=== PATIENT | male | born 1950 | race Caucasian/White ===

== ENCOUNTER 2021-06-25 20:35 | Inpatient (IN) | payer MEDICARE ==
[2021-06-25] MEDS ORDERED: Acetaminophen 325 MG TAB PO PRN (22:08)
[2021-06-25] MEDS ORDERED: Apixaban 2.5 MG TAB PO SCH (22:45)
[2021-06-26] MEDS: predniSONE 20 MG TAB PO SCH (08:26)
[2021-06-26] MEDS: Zinc Sulfate 220 MG CAP PO SCH (08:27)
[2021-06-26] MEDS: Apixaban 2.5 MG TAB PO SCH ×2 (08:27→20:53)
[2021-06-26] MEDS: Cholecalciferol (Vitamin D3) 400 UNITS TAB PO SCH (08:27)
[2021-06-26] MEDS: Ascorbic Acid 500 mg Chewable Tablet PO SCH (08:27)
[2021-06-26] MEDS: Lantus 1000 UNITS/10 ML VIAL SC SCH (08:31)
[2021-06-26] MEDS ORDERED: Aspirin Chewable 81 MG TAB PO SCH (09:00)
[2021-06-26] MEDS ORDERED: Bisacodyl 5 MG TAB PO SCH (17:45)
[2021-06-27] MEDS: Polyethylene Glycol 3350 17 GM Packet PER TUBE SCH (08:38)
[2021-06-27] MEDS: Apixaban 2.5 MG TAB PO SCH ×2 (08:38→21:06)
[2021-06-27] MEDS: predniSONE 20 MG TAB PO SCH (08:38)
[2021-06-27] MEDS: Cholecalciferol (Vitamin D3) 400 UNITS TAB PO SCH (08:38)
[2021-06-27] MEDS: Zinc Sulfate 220 MG CAP PO SCH (08:38)
[2021-06-27] MEDS: Lantus 1000 UNITS/10 ML VIAL SC SCH (08:38)
[2021-06-27] MEDS: Ascorbic Acid 500 mg Chewable Tablet PO SCH (08:38)
[2021-06-27] MEDS ORDERED: FLU VACC QS2021-22(65YR UP)/PF 240 MCG/0.7 ML SYRINGE IM ONE (09:00)
[2021-06-27] MEDS: Saccharomyces boulardii 250 MG CAP PO SCH (10:34)
[2021-06-28] MEDS: predniSONE 20 MG TAB PO SCH (08:41)
[2021-06-28] MEDS: Apixaban 2.5 MG TAB PO SCH ×2 (08:41→20:16)
[2021-06-28] MEDS: Cholecalciferol (Vitamin D3) 400 UNITS TAB PO SCH (08:42)
[2021-06-28] MEDS: Ascorbic Acid 500 mg Chewable Tablet PO SCH (08:42)
[2021-06-28] MEDS: Lantus 1000 UNITS/10 ML VIAL SC SCH (08:42)
[2021-06-28] MEDS: Polyethylene Glycol 3350 17 GM Packet PER TUBE SCH (08:43)
[2021-06-28] MEDS: Saccharomyces boulardii 250 MG CAP PO SCH (08:44)
[2021-06-28] MEDS: Zinc Sulfate 220 MG CAP PO SCH (08:44)
[2021-06-28] MEDS ORDERED: Dextrose 50% Abboject 50 ML SYRINGE IVP PRN (17:00)
[2021-06-28] MEDS ORDERED: Dextrose 5% in Water 1,000 ML IV PRN (17:00)
[2021-06-28] MEDS: HumaLOG 300 UNITS/3 ML VIAL SC PRN (17:14)
[2021-06-28] MEDS ORDERED: HumaLOG 300 UNITS/3 ML VIAL SC PRN (17:45)
[2021-06-28] MEDS ORDERED: Fleet Enema 133 ML BOT PR PRN (17:59)
[2021-06-28] MEDS ORDERED: Melatonin 3 MG TAB PO PRN (20:59)
[2021-06-29 05:34] LABS: Hemoglobin 14.6 g/dL (14.0-18.0); Platelet Count 171 thou/uL (130-400)
[2021-06-29] MEDS: predniSONE 10 MG TAB PO SCH (08:44)
[2021-06-29] MEDS: Apixaban 2.5 MG TAB PO SCH ×2 (08:45→20:15)
[2021-06-29] MEDS: Zinc Sulfate 220 MG CAP PO SCH (08:45)
[2021-06-29] MEDS: Ascorbic Acid 500 mg Chewable Tablet PO SCH (08:45)
[2021-06-29] MEDS: Lantus 1000 UNITS/10 ML VIAL SC SCH (08:45)
[2021-06-29] MEDS: Polyethylene Glycol 3350 17 GM Packet PER TUBE SCH (08:53)
[2021-06-29] MEDS: Saccharomyces boulardii 250 MG CAP PO SCH (08:53)
[2021-06-29] MEDS: Cholecalciferol (Vitamin D3) 400 UNITS TAB PO SCH (08:54)
[2021-06-29] MEDS: HumaLOG 300 UNITS/3 ML VIAL SC PRN ×2 (17:11→21:22)
[2021-06-30] MEDS: Saccharomyces boulardii 250 MG CAP PO SCH (08:44)
[2021-06-30] MEDS: Cholecalciferol (Vitamin D3) 400 UNITS TAB PO SCH (08:44)
[2021-06-30] MEDS: Apixaban 2.5 MG TAB PO SCH ×2 (08:44→21:44)
[2021-06-30] MEDS: Ascorbic Acid 500 mg Chewable Tablet PO SCH (08:44)
[2021-06-30] MEDS: predniSONE 10 MG TAB PO SCH (08:44)
[2021-06-30] MEDS: Zinc Sulfate 220 MG CAP PO SCH (08:44)
[2021-06-30] MEDS: Polyethylene Glycol 3350 17 GM Packet PER TUBE SCH (08:52)
[2021-06-30] MEDS: Lantus 1000 UNITS/10 ML VIAL SC SCH (09:20)
[2021-06-30] MEDS: HumaLOG 300 UNITS/3 ML VIAL SC PRN (17:18)
[2021-07-01] MEDS: predniSONE 10 MG TAB PO SCH (08:15)
[2021-07-01] MEDS: Cholecalciferol (Vitamin D3) 400 UNITS TAB PO SCH (08:16)
[2021-07-01] MEDS: Apixaban 2.5 MG TAB PO SCH ×2 (08:16→20:26)
[2021-07-01] MEDS: Ascorbic Acid 500 mg Chewable Tablet PO SCH (08:16)
[2021-07-01] MEDS: Lantus 1000 UNITS/10 ML VIAL SC SCH (08:16)
[2021-07-01] MEDS: Polyethylene Glycol 3350 17 GM Packet PER TUBE SCH (08:17)
[2021-07-01] MEDS: Zinc Sulfate 220 MG CAP PO SCH (08:17)
[2021-07-01] MEDS: Saccharomyces boulardii 250 MG CAP PO SCH (08:17)
[2021-07-01] MEDS: HumaLOG 300 UNITS/3 ML VIAL SC PRN (16:23)
[2021-07-02] MEDS: Ascorbic Acid 500 mg Chewable Tablet PO SCH (08:29)
[2021-07-02] MEDS: Apixaban 2.5 MG TAB PO SCH ×2 (08:29→20:38)
[2021-07-02] MEDS: Cholecalciferol (Vitamin D3) 400 UNITS TAB PO SCH (08:29)
[2021-07-02] MEDS: Saccharomyces boulardii 250 MG CAP PO SCH (08:30)
[2021-07-02] MEDS: predniSONE 20 MG TAB PO SCH (08:30)
[2021-07-02] MEDS: Polyethylene Glycol 3350 17 GM Packet PER TUBE SCH (08:30)
[2021-07-02] MEDS: Lantus 1000 UNITS/10 ML VIAL SC SCH (08:31)
[2021-07-02] MEDS: Zinc Sulfate 220 MG CAP PO SCH (08:39)
[2021-07-02] MEDS: HumaLOG 300 UNITS/3 ML VIAL SC PRN ×2 (12:02→16:57)
[2021-07-03] MEDS: Apixaban 2.5 MG TAB PO SCH ×2 (09:45→22:05)
[2021-07-03] MEDS: predniSONE 20 MG TAB PO SCH (09:45)
[2021-07-03] MEDS: Cholecalciferol (Vitamin D3) 400 UNITS TAB PO SCH (09:46)
[2021-07-03] MEDS: Lantus 1000 UNITS/10 ML VIAL SC SCH (09:46)
[2021-07-03] MEDS: Polyethylene Glycol 3350 17 GM Packet PO SCH (09:46)
[2021-07-03] MEDS: Ascorbic Acid 500 mg Chewable Tablet PO SCH (09:46)
[2021-07-03] MEDS: Zinc Sulfate 220 MG CAP PO SCH (09:47)
[2021-07-03] MEDS: Saccharomyces boulardii 250 MG CAP PO SCH (09:47)
[2021-07-03] MEDS: HumaLOG 300 UNITS/3 ML VIAL SC PRN ×2 (12:16→16:53)
[2021-07-04] MEDS: Lantus 1000 UNITS/10 ML VIAL SC SCH (08:41)
[2021-07-04] MEDS: Polyethylene Glycol 3350 17 GM Packet PO SCH (08:42)
[2021-07-04] MEDS: Ascorbic Acid 500 mg Chewable Tablet PO SCH (08:42)
[2021-07-04] MEDS: Apixaban 2.5 MG TAB PO SCH ×2 (08:42→21:03)
[2021-07-04] MEDS: predniSONE 20 MG TAB PO SCH (08:42)
[2021-07-04] MEDS: Cholecalciferol (Vitamin D3) 400 UNITS TAB PO SCH (08:42)
[2021-07-04] MEDS: Saccharomyces boulardii 250 MG CAP PO SCH (08:42)
[2021-07-04] MEDS: Zinc Sulfate 220 MG CAP PO SCH (08:43)
[2021-07-04] MEDS: HumaLOG 300 UNITS/3 ML VIAL SC PRN ×2 (12:17→17:02)
[2021-07-05 05:23] LABS: Hemoglobin 14.1 g/dL (14.0-18.0); Platelet Count 134 thou/uL (130-400)
[2021-07-05] MEDS: predniSONE 10 MG TAB PO SCH (07:54)
[2021-07-05] MEDS: Cholecalciferol (Vitamin D3) 400 UNITS TAB PO SCH (07:59)
[2021-07-05] MEDS: Apixaban 2.5 MG TAB PO SCH ×2 (07:59→20:16)
[2021-07-05] MEDS: Zinc Sulfate 220 MG CAP PO SCH (07:59)
[2021-07-05] MEDS: Saccharomyces boulardii 250 MG CAP PO SCH (07:59)
[2021-07-05] MEDS: Ascorbic Acid 500 mg Chewable Tablet PO SCH (07:59)
[2021-07-05] MEDS: Lantus 1000 UNITS/10 ML VIAL SC SCH (08:00)
[2021-07-05] MEDS: Polyethylene Glycol 3350 17 GM Packet PO SCH (08:06)
[2021-07-05 10:53] VITALS: BMI 23.6
[2021-07-05] MEDS: HumaLOG 300 UNITS/3 ML VIAL SC PRN (12:22)
[2021-07-06] MEDS: Apixaban 2.5 MG TAB PO SCH ×2 (08:59→20:47)
[2021-07-06] MEDS: Cholecalciferol (Vitamin D3) 400 UNITS TAB PO SCH (08:59)
[2021-07-06] MEDS: Ascorbic Acid 500 mg Chewable Tablet PO SCH (08:59)
[2021-07-06] MEDS: Saccharomyces boulardii 250 MG CAP PO SCH (08:59)
[2021-07-06] MEDS: Polyethylene Glycol 3350 17 GM Packet PO SCH (08:59)
[2021-07-06] MEDS: Lantus 1000 UNITS/10 ML VIAL SC SCH (08:59)
[2021-07-06] MEDS: predniSONE 10 MG TAB PO SCH (08:59)
[2021-07-06] MEDS: Zinc Sulfate 220 MG CAP PO SCH (09:04)
[2021-07-06] MEDS: HumaLOG 300 UNITS/3 ML VIAL SC PRN (12:35)
[2021-07-07] MEDS ORDERED: Aspirin 81 mg Enteric Coated Tablet PO SCH (09:00)
[2021-07-07] MEDS: Cholecalciferol (Vitamin D3) 400 UNITS TAB PO SCH (09:12)
[2021-07-07] MEDS: Zinc Sulfate 220 MG CAP PO SCH (09:12)
[2021-07-07] MEDS: Saccharomyces boulardii 250 MG CAP PO SCH (09:12)
[2021-07-07] MEDS: Ascorbic Acid 500 mg Chewable Tablet PO SCH (09:12)
[2021-07-07] MEDS: predniSONE 10 MG TAB PO SCH (09:13)
[2021-07-07] MEDS: Lantus 1000 UNITS/10 ML VIAL SC SCH (09:14)
[2021-07-07] MEDS: Polyethylene Glycol 3350 17 GM Packet PO SCH (09:14)
[2021-07-07 12:41] VITALS: BP 105/69; TEMP 98.3
== END 2021-07-07 14:00 | disposition home or self-care (01) | DRG 947 ==
LOC: MADMS 20:35
PROVIDERS: ADMIT Family Medicine; ATTEND Family Medicine
DX: R53.81 Other malaise (principal); U07.1 COVID-19; J12.82 Pneumonia due to coronavirus disease 2019; J80 Acute respiratory distress syndrome; E11.65 Type 2 diabetes mellitus with hyperglycemia; Z66 Do not resuscitate; R63.4 Abnormal weight loss; K59.00 Constipation, unspecified; R26.9 Unspecified abnormalities of gait and mobility; Z91.014 Allergy to mammalian meats; Z79.82 Long term (current) use of aspirin; Z79.4 Long term (current) use of insulin; Z79.899 Other long term (current) drug therapy; Z90.49 Acquired absence of other specified parts of digestive tract; Z68.23 Body mass index [BMI] 23.0-23.9, adult; Z99.81 Dependence on supplemental oxygen; Z91.013 Allergy to seafood
CPT/HCPCS: 36415; 36416; 71046; 82565; 85014; 85018; 85049; J1815; J7512

== ENCOUNTER 2021-07-14 19:32 | Emergency (ER) | payer MEDICARE ==
[~2021-07-14 19:32] MED LIST: Iopamidol 370 76% 125 ML VIAL FS ONE
[2021-07-14 21:05] LABS: #Basophils 0.1 thou/uL (0.0-0.2); #Eosinphils 0.2 thou/uL (0.0-0.7); #Lymphocytes 0.8 thou/uL (1.20-3.40); #Monocytes 0.6 thou/uL (0.11-0.59); #Neutrophils 4.6 thou/uL (1.40-6.50); %Basophils 2.3 % (0.0-1.0); %Eosinophils 3.7 % (0.0-10.0); %Lymphocytes 12.8 % (21.0-51.0); %Monocytes 9.8 % (0.0-10.0); %Neutrophils 71.4 % (42.0-75.0); Mean Corpuscular HGB CONC 32.3 g/dL (32.0-36.0); Mean Corpuscular Volume 89.7 fL (78.0-98.0); Mean Platelet Volume 5.5 fL (7.4-10.4); Platelet Count 181 thou/uL (130-400); RBC Distribution Width 12.6 % (11.5-14.5); Red Blood Cell (RBC) Count 4.49 mill/uL (4.70-6.10); White Blood Cell (WBC) Count 6.4 thou/uL (4.8-10.8)
[2021-07-14] MEDS ORDERED: Albuterol Sulfate 2.5 mg/3 ml Neb ONE (21:16)
[2021-07-14 21:27] LABS: ALT (SGPT) 10 U/L (8-55); AST (SGOT) 12 U/L (5-34); Albumin 3.2 g/dL (3.4-4.8); Alkaline Phosphatase 77 U/L (40-110); Anion Gap 14 mmol/L (10-20); BUN (Urea Nitrogen) 18 mg/dL (8.4-25.7); Bilirubin, Total 0.5 mg/dL (0.2-1.2); Calc. Creatinine Clearance 0 mL/min (70-130); Calcium 8.5 mg/dL (7.8-10.44); Carbon Dioxide 25 mmol/L (23-31); Chloride 101 mmol/L (98-107); Globulin 2.5 g/dL (2.4-3.5); Glucose 200 mg/dL (83-110); Potassium 4.6 mmol/L (3.5-5.1); Protein, Total 5.7 g/dL (5.8-8.1); Sodium 135 mmol/L (136-145)
[2021-07-14] MEDS ORDERED: Sodium Chloride 0.9% 250 ML 500 ML ONE (21:53)
[2021-07-14] MEDS ORDERED: Sodium Chloride 0.9% 100 ML ONE (21:53)
[2021-07-14] MEDS ORDERED: Cefepime 2 GM VIAL ONE (21:53)
[2021-07-14] MEDS ORDERED: Dexamethasone 10 MG/ML VIAL ONE (23:21)
== END 2021-07-15 00:38 | disposition short-term general hospital (02) ==
LOC: MADERS 19:32
DX: J18.9 Pneumonia, unspecified organism (principal); R09.02 Hypoxemia; E11.9 Type 2 diabetes mellitus without complications; Z79.4 Long term (current) use of insulin
CPT/HCPCS: 71045; 71275; 80053; 83605; 83880; 84484; 85025; 85379; 87040; 93005; 96365; 96366; 96368; 96375; J0692; J1100; J1956; J3370; J3490; J7050; J7611; Q9967

== ENCOUNTER 2021-08-13 09:08 | Outpatient (CLI) | payer MEDICARE | END 2021-08-13 09:09 | disposition home or self-care (01) | LOC: MADRAD 09:08 | PROVIDERS: ATTEND Family Medicine | DX: U07.1 COVID-19 (principal); J12.82 Pneumonia due to coronavirus disease 2019 | CPT/HCPCS: 71046 ==

== ENCOUNTER 2021-11-16 12:19 | Outpatient (CLI) | payer MEDICARE | END 2021-11-16 12:20 | disposition home or self-care (01) | LOC: MADRAD 12:19 | PROVIDERS: ATTEND Family Medicine | DX: M54.2 Cervicalgia (principal); M25.551 Pain in right hip; G89.29 Other chronic pain; M16.11 Unilateral primary osteoarthritis, right hip; M47.812 Spondylosis without myelopathy or radiculopathy, cervical region | CPT/HCPCS: 72050; 72170 ==

== ENCOUNTER 2022-02-11 13:56 | Outpatient (CLI) | payer MEDICARE ==
[2022-02-11 14:13] LABS: ALT (SGPT) 14 U/L (8-55); AST (SGOT) 16 U/L (5-34); Albumin 4.5 g/dL (3.4-4.8); Alkaline Phosphatase 66 U/L (40-110); Anion Gap 12 mmol/L (10-20); BUN (Urea Nitrogen) 17 mg/dL (8.4-25.7); Bilirubin, Total 0.9 mg/dL (0.2-1.2); Calc. Creatinine Clearance 0 mL/min (70-130); Calcium 10.2 mg/dL (7.8-10.44); Carbon Dioxide 27 mmol/L (23-31); Cardiac Risk 5.1 (Less than 4.5); Chloride 105 mmol/L (98-107); Cholesterol 194 mg/dl (< 200 Desired); Estimated GFR 75; Globulin 2.9 g/dL (2.4-3.5); Glucose 97 mg/dL (83-110); HDL Cholesterol 38 mg/dL (>60 Neg Risk); LDL Cholesterol, Calculated 128 mg/dL; Potassium 4.3 mmol/L (3.5-5.1); Protein, Total 7.4 g/dL (5.8-8.1); Sodium 140 mmol/L (136-145); Triglycerides 140 mg/dL (Less than 150)
[2022-02-11 21:40] LABS: Hemoglobin A1c 6.2 % (4.0-6.0)
== END 2022-02-11 13:57 | disposition home or self-care (01) ==
LOC: MADLABBHPM 13:56 → MADLAB 13:57
PROVIDERS: ATTEND Family Medicine
DX: E11.9 Type 2 diabetes mellitus without complications (principal); E78.5 Hyperlipidemia, unspecified
CPT/HCPCS: 80053; 80061; 83036